=== PATIENT | male | born 1980 | race Caucasian/White ===

== ENCOUNTER 2020-09-11 11:19 | Emergency (ER) | payer OTHER ==
[2020-09-11 11:39] VITALS: BP 153/95; PULSE 109; TEMP 98.6; BMI 31.1
[2020-09-11] MEDS ORDERED: LIDOCAINE 5% TOPICAL PATCH TP ONE (12:52)
[2020-09-11] MEDS ORDERED: KETOROLAC TROMETHAMINE 60 MG/2 ML VIAL IM ONE (12:52)
[2020-09-11] MEDS ORDERED: diazePAM 5 MG TABLET PO ONE (12:52)
[2020-09-11] MEDS ORDERED: ACETAMINOPHEN 325 MG TABLET (FP) PO ONE (12:52)
[2020-09-11] MEDS ORDERED: LIDOCAINE 5% TOPICAL PATCH ONE (12:55)
[2020-09-11] MEDS ORDERED: KETOROLAC TROMETHAMINE 15 MG/ML VIAL ONE (12:55)
[2020-09-11] MEDS ORDERED: ACETAMINOPHEN 500 MG TABLET (FP) ONE (12:55)
[2020-09-11] MEDS ORDERED: diazePAM 5 MG TABLET ONE (12:56)
== END 2020-09-11 13:28 | disposition home or self-care (01) ==
LOC: JERFT 11:19 → JER 11:19 → JERFT 13:28
PROC: 3E0233Z Introduction of Anti-inflammatory into Muscle, Percutaneous Approach (ICD-10-PCS; principal; 2020-09-11)
DX: M54.42 Lumbago with sciatica, left side (principal)
CPT/HCPCS: 99284-25